=== PATIENT | male | born 1940 | race Caucasian/White ===

== ENCOUNTER → 2017-01-21 | Outpatient (CLI) | payer MEDICARE ==
--- NOTE | 2017-01-24 10:43 | RSPPFT ---
DATE OF PROCEDURE: 01/21/17 COMMENTS: VOLUMES DYNAMIC: FVC and FEV1 moderately reduced. STATIC: FRC mildly increased; RV moderately increased; TLC normal. FLOWS: FEV1% moderately reduced; FEF 25-75 severely reduced. DIFFUSION: Low normal. FLOW VOLUME LOOP: Pattern of variable intrathoracic airways obstruction. IMPRESSION: Moderate obstructive ventilatory defect with no significant reduction in diffusion. There is mild to moderate hyperinflation with increased airways resistance. There is improvement post-bronchodilator.
== END ==
LOC: HRSP 09:35
PROVIDERS: ATTEND Internal Medicine
DX: J47.9 Bronchiectasis, uncomplicated (principal); R06.02 Shortness of breath
CPT/HCPCS: 94060; 94726; 94729

== ENCOUNTER 2017-05-19 15:27 | Inpatient (IN) | payer MEDICARE ==
[~2017-05-19] VITALS: Ht 180.3 cm; Wt 70.3 kg
[2017-05-19] VITALS (7 sets, daily range): BP systolic 147–164; BP diastolic 77–88; PULSE 100–122; RESP 18–35; TEMP 97.6–98.1; O2SAT 86–98
[2017-05-19] MEDS ORDERED: IOHEXOL 350 MG/ML 10 ML VIAL (for RAD DIAG) IVCONTRAST ONE (15:28)
[2017-05-19] MEDS ORDERED: CIPR-9 PO (15:47)
[2017-05-19] MEDS ORDERED: ALBU1.25 NEB (15:47)
[2017-05-19] MEDS ORDERED: IPRA0.02 NEB (15:47)
[2017-05-19] MEDS ORDERED: SODIUM CHLORID 0.9% 500 ML INJ 500 ML IV ONE (16:00)
[2017-05-19] MEDS ORDERED: SODIUM CHLORIDE 0.9% FLUSH 10 ML FLUSH IVF PRN (16:00)
--- NOTE | 2017-05-19 16:15 | PD ---
HPI Chief Complaint: Respiratory Distress Time Seen by Provider: 15:39 Travel History International Travel<30 days: No Contact w/Intl Traveler<30days: No Traveled to known affect area: No History of Present Illness HPI Patient is 76-year-old male with history of bronchiectasis, presents to emergency room for evaluation of shortness of breath. Patient reports that he has been feeling short of breath for the past few months. Reports that he has been seeing Dr. Lloyd Hinds in the office and reports that he has had a workup including a CT study of his chest which showed infection. Patient reports that he has been on multiple antibiotics and is currently taking ciprofloxacin. Patient reports that he's had a productive cough with thick white sputum for the past few months. Patient was seen in the office by Dr. hinds today, was sent to the ER as he has progressing shortness of breath. Patient reports dyspnea on exertion as well as at rest. Denies history of hypertension, hyperlipidemia, he is a non smoker. Reports that Dr. Hinds requested a cardiac/ pulmonary workup for patient as ALEXANDER has been ongoing and progressing over the past few months. PFSH Past Medical History COPD: Yes Diminished Hearing: Yes ([place]) Medical other: Yes (SITUS INVERSUS) Respiratory: Yes (copd) Tetanus Vaccination: > 5 Years Influenza Vaccination: No Past Surgical History Tonsillectomy: Yes Other Surgery: Yes (NASAL POLYPS) Social History Alcohol Use: No Tobacco Use: No Substance Use: No Allergies-Medications (Allergen,Severity, Reaction): Coded Allergies: cephalexin (Verified Allergy, Severe, Nausea/Vomiting, 05/19/17) Reported Meds & Prescriptions Reported Meds & Active Scripts Active Reported Albuterol Neb (Albuterol Sulfate) 1.25 Mg/3 Ml Neb 1.25 Mg NEB Q4HR NEB PRN Ipratropium Neb (Ipratropium [place]) 0.5 Mg/2.5 Ml Amp 0.5 Mg NEB Q12HR NEB Cipro (Ciprofloxacin HCl) 500 Mg Tab 500 Mg PO BID Review of Systems General / Constitutional: No: Fever Eyes: No: Visual changes HENT: No: Headaches Cardiovascular: Positive: Tachycardia, No: Chest Pain or Discomfort Respiratory: Positive: Cough, Shortness of Breath Gastrointestinal: No: Abdominal Pain Genitourinary: No: Dysuria Musculoskeletal: No: Pain Skin: No Rash Neurologic: No: Weakness Psychiatric: No: Depression Endocrine: No: Polydipsia Hematologic/Lymphatic: No: Easy Bruising Physical Exam Narrative GENERAL:mild distress SKIN: Focused skin assessment warm/dry. HEAD: Atraumatic. Normocephalic. EYES: Pupils equal and round. No scleral icterus. No injection or drainage. ENT: No nasal bleeding or discharge. Mucous membranes pink and moist. NECK: Trachea midline. No JVD. CARDIOVASCULAR: Tachycardic, irregular irregular. No murmur appreciated. RESPIRATORY: No accessory muscle use. Clear to auscultation. Breath sounds equal bilaterally. GASTROINTESTINAL: Abdomen soft, non-tender, nondistended. Hepatic and splenic margins not palpable. MUSCULOSKELETAL: No obvious deformities. No clubbing. No cyanosis. No edema. NEUROLOGICAL: Awake and alert. No obvious cranial nerve deficits. Motor grossly within normal limits. Normal speech. PSYCHIATRIC: Appropriate mood and affect; insight and judgment normal. Data Data Last Documented VS Vital Signs Date Time Temp Pulse Resp B/P (MAP) Pulse Ox O2 Delivery O2 Flow Rate FiO2 05/19/17 18:12 100 20 152/77 (102) 92 Room Air 05/19/17 15:31 97.9 Orders Orders Electrocardiogram (05/19/17 15:55) B-Type Natriuretic Peptide (05/19/17 15:55) Ckmb (Isoenzyme) Profile (05/19/17 15:55) Complete Blood Count With Diff (05/19/17 15:55) Comprehensive Metabolic Panel (05/19/17 15:55) Prothrombin Time / Inr (Pt) (05/19/17 15:55) Act Partial Throm Time (Ptt) (05/19/17 15:55) Troponin I (05/19/17 15:55) Chest, Single Ap (05/19/17 15:55) Ecg Monitoring (05/19/17 15:55) Iv Access Insert/Monitor (05/19/17 15:55) Oximetry (05/19/17 15:55) Sodium Chloride 0.9% Flush (Ns Flush) (05/19/17 16:00) Sodium Chlorid 0.9% 500 Ml Inj (Ns 500 M (05/19/17 16:00) Ct Pulmonary Angiogram (05/19/17 16:30) Iohexol 350 Inj (Omnipaque 350 Inj) (05/19/17 15:28) Aztreonam Inj (Azactam Inj) (05/19/17 18:30) Levofloxacin 750 Mg Premix Inj (Levaquin (05/19/17 18:30) Aspirin Chew (Aspirin Chew) (05/19/17 18:30) Admit Order (Ed Use Only) (05/19/17 18:32) Labs Laboratory Tests Test 05/19/17 16:00 White Blood Count 15.8 TH/MM3 Red Blood Count 5.35 MIL/MM3 Hemoglobin 14.7 GM/DL Hematocrit 45.9 % Mean Corpuscular Volume 85.8 FL Mean Corpuscular Hemoglobin 27.5 PG Mean Corpuscular Hemoglobin Concent 32.1 % Red Cell Distribution Width 15.6 % Platelet Count 234 TH/MM3 Mean Platelet Volume 7.5 FL Neutrophils (%) (Auto) 83.8 % Lymphocytes (%) (Auto) 4.5 % Monocytes (%) (Auto) 9.4 % Eosinophils (%) (Auto) 1.9 % Basophils (%) (Auto) 0.4 % Neutrophils # (Auto) 13.2 TH/MM3 Lymphocytes # (Auto) 0.7 TH/MM3 Monocytes # (Auto) 1.5 TH/MM3 Eosinophils # (Auto) 0.3 TH/MM3 Basophils # (Auto) 0.1 TH/MM3 CBC Comment DIFF FINAL Differential Comment Prothrombin Time 11.3 SEC Prothromb Time International Ratio 1.0 RATIO Activated Partial Thromboplast Time 29.3 SEC Blood Urea Nitrogen 16 MG/DL Creatinine 0.97 MG/DL Random Glucose 87 MG/DL Total Protein 7.4 GM/DL Albumin 3.4 GM/DL Calcium Level 8.8 MG/DL Alkaline Phosphatase 84 U/L Aspartate Amino Transf (AST/SGOT) 18 U/L Alanine Aminotransferase (ALT/SGPT) 18 U/L Total Bilirubin 0.4 MG/DL Sodium Level 138 MEQ/L Potassium Level 4.0 MEQ/L Chloride Level 102 MEQ/L Carbon Dioxide Level 26.6 MEQ/L Anion Gap 9 MEQ/L Estimat Glomerular Filtration Rate 75 ML/MIN Total Creatine Kinase 66 U/L Troponin I LESS THAN 0.02 NG/ML B-Type Natriuretic Peptide 27 PG/ML MDM Medical Decision Making Medical Screen Exam Complete: Yes Emergency Medical Condition: Yes Interpretation(s) EKG at 1555: A fib at 110, qt/qtc: 327/392 Differential Diagnosis Differential includes PE, A. fib with RVR, CHF exacerbation, PE, pneumonia, electrolyte abnormality Narrative Course Patient is a 76-year-old male sent into the hospital by Dr. Hinds for evaluation of sob. Patient has been having shortness of breath for the past few months, reports that dyspnea on exertion has progressively gotten worse. He currently is on a course of antibiotics as he had a CT study of his chest a few months ago which showed infection Vital Signs Date Time Temp Pulse Resp B/P (MAP) Pulse Ox O2 Delivery O2 Flow Rate FiO2 05/19/17 18:12 100 20 152/77 (102) 92 Room Air 05/19/17 16:01 32 93 Room Air 05/19/17 15:31 97.9 122 20 164/84 (110) 91 Room Air Laboratory Tests Test 05/19/17 16:00 White Blood Count 15.8 TH/MM3 (4.0-11.0) Red Blood Count 5.35 MIL/MM3 (4.50-5.90) Hemoglobin 14.7 GM/DL (13.0-17.0) Hematocrit 45.9 % (39.0-51.0) Mean Corpuscular Volume 85.8 FL (80.0-100.0) Mean Corpuscular Hemoglobin 27.5 PG (27.0-34.0) Mean Corpuscular Hemoglobin Concent 32.1 % (32.0-36.0) Red Cell Distribution Width 15.6 % (11.6-17.2) Platelet Count 234 TH/MM3 (150-450) Mean Platelet Volume 7.5 FL (7.0-11.0) Neutrophils (%) (Auto) 83.8 % (16.0-70.0) Lymphocytes (%) (Auto) 4.5 % (9.0-44.0) Monocytes (%) (Auto) 9.4 % (0.0-8.0) Eosinophils (%) (Auto) 1.9 % (0.0-4.0) Basophils (%) (Auto) 0.4 % (0.0-2.0) Neutrophils # (Auto) 13.2 TH/MM3 (1.8-7.7) Lymphocytes # (Auto) 0.7 TH/MM3 (1.0-4.8) Monocytes # (Auto) 1.5 TH/MM3 (0-0.9) Eosinophils # (Auto) 0.3 TH/MM3 (0-0.4) Basophils # (Auto) 0.1 TH/MM3 (0-0.2) CBC Comment DIFF FINAL Differential Comment Prothrombin Time 11.3 SEC (9.8-11.6) Prothromb Time International Ratio 1.0 RATIO Activated Partial Thromboplast Time 29.3 SEC (24.3-30.1) Blood Urea Nitrogen 16 MG/DL (7-18) Creatinine 0.97 MG/DL (0.60-1.30) Random Glucose 87 MG/DL (74-106) Total Protein 7.4 GM/DL (6.4-8.2) Albumin 3.4 GM/DL (3.4-5.0) Calcium Level 8.8 MG/DL (8.5-10.1) Alkaline Phosphatase 84 U/L (45-117) Aspartate Amino Transf (AST/SGOT) 18 U/L (15-37) Alanine Aminotransferase (ALT/SGPT) 18 U/L (12-78) Total Bilirubin 0.4 MG/DL (0.2-1.0) Sodium Level 138 MEQ/L (136-145) Potassium Level 4.0 MEQ/L (3.5-5.1) Chloride Level 102 MEQ/L (98-107) Carbon Dioxide Level 26.6 MEQ/L (21.0-32.0) Anion Gap 9 MEQ/L (5-15) Estimat Glomerular Filtration Rate 75 ML/MIN (>89) Total Creatine Kinase 66 U/L (39-308) Troponin I LESS THAN 0.02 NG/ML B-Type Natriuretic Peptide 27 PG/ML (0-100) Last Impressions CT Angiography 05/19/17 1630 Signed Impressions: Service Date/Time: April 17:28 - CONCLUSION: 1. No evidence of pulmonary embolism. 2. Situs inversus totalis. 3. Bronchiectasis greatest in the lung bases with chronic scarring and reticulonodular opacities. 4. Bilateral calcified pleural plaques. 5. Mediastinal and hilar adenopathy. This may be reactive. Nino Hurt MD patient with reticulonodular opacities with wbc of 15.8, patient with allergy to keflex, will treat with levaquin and azactam. Patient has been pancultured - will require admission. patient also with new onset afib case reviewed with dr. greene who accepts pt to service under dr martin Diagnosis Primary Impression: Pneumonia Qualified Codes: J18.9 - Pneumonia, unspecified organism Additional Impressions: SOB (shortness of breath) Afib Qualified Codes: I48.91 - Unspecified atrial fibrillation Admitting Information Admitting Physician Requests: Observation Belkis Desir DO May 19, 2017 16:15
[2017-05-19 16:20] LABS: AUTOMATED NEUTROPHIL # 13.2 TH/MM3 (1.8-7.7); BASOPHIL # 0.1 TH/MM3 (0-0.2); BASOPHIL % 0.4 % (0.0-2.0); EOSINOPHIL # 0.3 TH/MM3 (0-0.4); EOSINOPHIL % 1.9 % (0.0-4.0); HEMATOCRIT 45.9 % (39.0-51.0); HEMO FLAGS DIFF FINAL; LYMPH % 4.5 % (9.0-44.0); LYMPHOCYTE # 0.7 TH/MM3 (1.0-4.8); MEAN CELL VOLUME 85.8 FL (80.0-100.0); MEAN CORPUSCULAR HEMOGLOBIN 27.5 PG (27.0-34.0); MEAN CORPUSCULAR HGB CONC 32.1 % (32.0-36.0); MONO % 9.4 % (0.0-8.0); NEUT % 83.8 % (16.0-70.0); PLATELET COUNT 234 TH/MM3 (150-450); RED BLOOD COUNT 5.35 MIL/MM3 (4.50-5.90); RED CELL DISTRIBUTION WIDTH 15.6 % (11.6-17.2); WHITE BLOOD COUNT 15.8 TH/MM3 (4.0-11.0)
[2017-05-19 16:33] LABS: APTT (PATIENT) 29.3 SEC (24.3-30.1); PROTHROMBIN TIME - PATIENT 11.3 SEC (9.8-11.6)
[2017-05-19 16:43] LABS: ALT (GPT) 18 U/L (12-78); ANION GAP 9 MEQ/L (5-15); AST (GOT) 18 U/L (15-37); BICARBONATE 26.6 MEQ/L (21.0-32.0); BLOOD UREA NITROGEN 16 MG/DL (7-18); CHLORIDE 102 MEQ/L (98-107); GLOMERULAR FILTRATION RATE 75 ML/MIN (>89); SODIUM (NA) 138 MEQ/L (136-145)
[2017-05-19 16:47] LABS: ALKALINE PHOSPHATASE 84 U/L (45-117); TOTAL BILIRUBIN ADULT 0.4 MG/DL (0.2-1.0)
[2017-05-19 16:51] LABS: CREATINE KINASE 66 U/L (39-308)
--- NOTE | 2017-05-19 18:00 | RADRPT ---
EXAM DATE/TIME: 05/19/2017 17:28 [facility] COMPARISON: No previous studies available for comparison. INDICATIONS : Short of breath for three months. IV CONTRAST: 60 cc Omnipaque 350 (iohexol) IV RADIATION DOSE: 41 CTDIvol (mGy) MEDICAL HISTORY : Chronic obstructive pulmonary disease. Sinus inversa SURGICAL HISTORY : None. ENCOUNTER: Initial ACUITY: 3 months PAIN SCALE: 2/10 LOCATION: Bilateral chest TECHNIQUE: Volumetric scanning of the chest was performed using a pulmonary embolism protocol MIP images were re constructed. Using automated exposure control and adjustment of the mA and/or kV according to patien t size, radiation dose was kept as low as reasonably achievable to obtain optimal diagnostic quality images. DICOM format image data is available electronically for review and comparison. Follow-up recommendations for detected pulmonary nodules are based at a minimum on nodule size and pa tient risk factors according to Fleischner Society Guidelines. 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 PULMONARY ARTERIES: No filling defects are seen in the pulmonary arteries through the segmental level. LUNGS: There is no consolidation or pneumothorax . No concerning pulmonary nodule is visualized. Bronchiect asis is noted greatest in the lower lobes. Reticular nodular opacities are present in both lower lobe s as well right greater than left. There is chronic scarring in the posterior lung bases. The lungs a re hyperinflated. PLEURAE: There bilateral calcified pleural plaques. There is no distinct effusion. MEDIASTINUM: There is good visualization of the great vessels of the middle mediastinum. The there is borderline a denopathy in pretracheal region. There are prominent lymph nodes in both hilar regions and the subcar inal region.. Coronary artery calcifications are present. MUSCULOSKELETAL: Within normal limits for patient age. MISCELLANEOUS: The visualized upper abdominal organs demonstrate no acute abnormality. Cystic structures are noted i n both kidneys. CONCLUSION: 1. No evidence of pulmonary embolism. 2. Situs inversus totalis. 3. Bronchiectasis greatest in the lung bases with chronic scarring and reticulonodular opacities. 4. Bilateral calcified pleural plaques. 5. Mediastinal and hilar adenopathy. This may be reactive. Nino Hurt MD on May 19, 2017 at 17:53 Board Certified Radiologist. This report was verified electronically.
--- NOTE | 2017-05-19 18:25 | RADRPT ---
EXAM DATE/TIME: 05/19/2017 16:41 [facility] COMPARISON: No previous studies available for comparison. INDICATIONS : Shortness of breath. Situs inversus. MEDICAL HISTORY : Chronic obstructive pulmonary disease. SURGICAL HISTORY : None. ENCOUNTER: Initial ACUITY: 3 months PAIN SCORE: 0/10 LOCATION: Bilateral chest FINDINGS: 2 AP portable erect views of the chest were obtained and demonstrate situs inversus. There is hyperin flation of both lungs with coarse opacity in both lower lobes and bronchiectasis. The heart size is a t the upper limits of normal. There is no perihilar edema. Overlying retrocardiac leads are present. The bony thorax is intact. CONCLUSION: 1. Hyperinflation underlying emphysema. 2. Coarse infiltrate in both lung bases with bronchiectasis. Nino Hurt MD on May 19, 2017 at 18:22 Board Certified Radiologist. This report was verified electronically.
[2017-05-19] MEDS ORDERED: LEVOFLOXACIN 750 MG PREMIX INJ 150 ML IV ONE (18:30)
[2017-05-19] MEDS ORDERED: ASPIRIN 81 MG CHEW TAB CHEW ONE (18:30)
[2017-05-19] MEDS ORDERED: AZTREONAM INJ 2,000 MG in SODIUM CHLORIDE 0.9% INJ 100 ML IV ONE (18:30)
[2017-05-19] MEDS ORDERED: SODIUM CHLORIDE 0.9% FLUSH 10 ML FLUSH IV FLUSH PRN (20:45)
[2017-05-19] MEDS ORDERED: SODIUM CHLOR 0.9% 1000 ML INJ 1,000 ML IV SCH (20:45)
--- NOTE | 2017-05-19 20:45 | HHI.HP ---
HPI Service [facility] Hospitalists Primary Care Physician Valdo Tejada MD Admission Diagnosis Pneumonia, bronchietasis, new onset afib Chief Complaint: sob, heart racing Travel History International Travel<30 Days: No Contact w/Intl Traveler <30 Da: No Traveled to Known Affected Are: No Sepsis Criteria SIRS Criteria (2 or more): RR > 20 or PaCO2 < 32, WBC > 67360, < 4000 or > 10 % bands Sepsis Criteria (SIRS+source): Infect source susp/known History of Present Illness Patient is 76-year-old male with long history of bronchiectasis, presents to emergency room for evaluation of shortness of breath. Patient reports that he has been feeling short of breath for several years but worse the past few months. He does not require supplemental oxygen as an outpatient. Reports that he has been seeing Dr. Lloyd Hinds for years for his bronchiectasis in the office and reports that he has had a workup including a CT study of his chest which showed "infection". Patient reports that he has been on multiple antibiotics and is currently taking ciprofloxacin. He takes doxycycline daily for rosacea and reportedly was on tobramycin recently. Patient reports that he' s had a productive cough with thick white sputum for the past few months. Previously the phlegm was a dark yellow color. He denies hemoptysis or foreign travel. He is originally from [place]. Has not been in the [facility] or [facility] recently. Denies fevers. Patient was seen in the office by Dr. Hinds today, was sent to the ER as he has progressing shortness of breath. Patient reports dyspnea on exertion as well as at rest. Denies history of hypertension, hyperlipidemia, he is a non smoker. Reports that Dr. Hinds requested a cardiac/pulmonary workup for patient as ALEXANDER has been ongoing and progressing over the past few months. Denies chest pain. Typically is quite active but has been limited by shortness of breath of late. He has noted that her heart seems to race at times especially when he is anxious. Reports that he has never had a bronchoscopy. Review of Systems Constitutional: COMPLAINS OF: Fatigue, DENIES: Diaphoretic episodes, Fever, Weight gain, Weight loss, Chills, Dizziness, Change in appetite, Night Sweats Endocrine: DENIES: Heat/cold intolerance, Polydipsia, Polyuria, Polyphagia Eyes: DENIES: Blurred vision, Diplopia, Eye inflammation, Eye pain, Vision loss , Photosensitivity, Double Vision Ears, nose, mouth, throat: COMPLAINS OF: Hoarseness, DENIES: Tinnitus, Hearing loss, Vertigo, Nasal discharge, Oral lesions, Throat pain, Ear Pain, Running Nose, Epistaxis, Sinus Pain, Toothache, Odynophagia Respiratory: COMPLAINS OF: Cough, Wheezing, Sputum production, Shortness of breath, DENIES: Apneas, Snoring, Hemoptysis Cardiovascular: COMPLAINS OF: Palpitations, Dyspnea on Exertion, DENIES: Chest pain, Syncope, PND, Lower Extremity Edema, Orthopnea, Claudication Gastrointestinal: DENIES: Abdominal pain, Black stools, Bloody stools, BRB per rectum, Constipation, Diarrhea, GERD, Nausea, Reflux, Vomiting, Difficulty Swallowing, Anorexia, See HPI Musculoskeletal: DENIES: Joint pain, Muscle aches, Stiffness, Joint Swelling, Back pain, Neck pain Integumentary: DENIES: Abnormal pigmentation, Nail changes, Pruritus, Rash Hematologic/lymphatic: DENIES: Bruising, Lymphadenopathy Immunologic/allergic: DENIES: Eczema, Urticaria Neurologic: DENIES: Abnormal gait, Headache, Localized weakness, Paresthesias, Seizures, Speech Problems, Tremor, Poor Balance Psychiatric: COMPLAINS OF: Anxiety Past Family Social History Past Medical History Bronchiectasis History of multiple pneumonias Rosacea History of prostate cancer History of bladder cancer Past Surgical History Nasal polypectomy Balloon septoplasty Radiation therapy for prostate cancer Local chemotherapy and resection for bladder cancer Reported Medications Albuterol Neb (Albuterol Sulfate) 1.25 Mg/3 Ml Neb 1.25 Mg NEB Q4HR NEB PRN Ipratropium Neb (Ipratropium [place]) 0.5 Mg/2.5 Ml Amp 0.5 Mg NEB Q12HR NEB Cipro (Ciprofloxacin HCl) 500 Mg Tab 500 Mg PO BID Allergies: Coded Allergies: cephalexin (Verified Allergy, Severe, Nausea/Vomiting, 05/19/17) Family History Mother at age 75 from cervical cancer Father at age 84 of "broken heart" No significant lung ailments Social History No tobacco in 35 years and at that time he only smoked a pipe on rare occasion Rare alcohol use Denies illicit drug use Lives with his of 49 years 3 adult children, not living in the immediate area 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 Physical Exam Vital Signs Vital Signs Date Time Temp Pulse Resp B/P (MAP) Pulse Ox O2 Delivery O2 Flow Rate FiO2 05/19/17 20:04 101 18 147/88 (107) 95 Nasal Cannula 2.00 05/19/17 18:12 100 32 152/77 (102) 95 Nasal Cannula 2.00 05/19/17 18:10 35 86 Room Air 05/19/17 16:01 32 93 Room Air 05/19/17 15:31 97.9 122 20 164/84 (110) 91 Room Air Physical Exam GENERAL: This is a well-nourished, well-developed patient, in no apparent distress. Alert and oriented. Pleasant. Cooperative with exam. SKIN: No rashes, ecchymoses or lesions. Cool and dry. HEAD: Atraumatic. Normocephalic. No temporal or scalp tenderness. EYES: Pupils equal round and reactive. Extraocular motions intact. No scleral icterus. No injection or drainage. ENT: Nose without bleeding, purulent drainage or septal hematoma. Airway patent. NECK: Trachea midline. No JVD or lymphadenopathy. Supple, nontender, no meningeal signs. CARDIOVASCULAR: Irregularly irregular rate and rhythm without murmurs, gallops, or rubs. Rate in the low 100s on my exam RESPIRATORY: Coarse breath sounds throughout lung birch.. Breath sounds equal bilaterally. Occasional expiratory wheeze with no fine crackles. Fair air movement. GASTROINTESTINAL: Abdomen soft, non-tender, nondistended. No hepato-splenomegaly , or palpable masses. No guarding. MUSCULOSKELETAL: Extremities without clubbing, cyanosis, or edema. No joint tenderness, effusion, or edema noted. No calf tenderness. NEUROLOGICAL: Awake and alert. Cranial nerves II through XII intact. Motor and sensory grossly within normal limits. Five out of 5 muscle strength in all muscle groups. Normal speech. Laboratory Laboratory Tests Test 05/19/17 16:00 White Blood Count 15.8 Red Blood Count 5.35 Hemoglobin 14.7 Hematocrit 45.9 Mean Corpuscular Volume 85.8 Mean Corpuscular Hemoglobin 27.5 Mean Corpuscular Hemoglobin Concent 32.1 Red Cell Distribution Width 15.6 Platelet Count 234 Mean Platelet Volume 7.5 Neutrophils (%) (Auto) 83.8 Lymphocytes (%) (Auto) 4.5 Monocytes (%) (Auto) 9.4 Eosinophils (%) (Auto) 1.9 Basophils (%) (Auto) 0.4 Neutrophils # (Auto) 13.2 Lymphocytes # (Auto) 0.7 Monocytes # (Auto) 1.5 Eosinophils # (Auto) 0.3 Basophils # (Auto) 0.1 CBC Comment DIFF FINAL Differential Comment Prothrombin Time 11.3 Prothromb Time International Ratio 1.0 Activated Partial Thromboplast Time 29.3 Blood Urea Nitrogen 16 Creatinine 0.97 Random Glucose 87 Total Protein 7.4 Albumin 3.4 Calcium Level 8.8 Alkaline Phosphatase 84 Aspartate Amino Transf (AST/SGOT) 18 Alanine Aminotransferase (ALT/SGPT) 18 Total Bilirubin 0.4 Sodium Level 138 Potassium Level 4.0 Chloride Level 102 Carbon Dioxide Level 26.6 Anion Gap 9 Estimat Glomerular Filtration Rate 75 Total Creatine Kinase 66 Troponin I LESS THAN 0.02 B-Type Natriuretic Peptide 27 Result Diagram: 05/19/17 1600 05/19/17 1600 Imaging Last [address] Angiography 05/19/17 1630 Signed Impressions: Service Date/Time: April 17:28 - CONCLUSION: 1. No evidence of pulmonary embolism. 2. Situs inversus totalis. 3. Bronchiectasis greatest in the lung bases with chronic scarring and reticulonodular opacities. 4. Bilateral calcified pleural plaques. 5. Mediastinal and hilar adenopathy. This may be reactive. Nino Hurt MD Chest X-Ray 05/19/17 1558 Signed Impressions: Service Date/Time: April 16:41 - CONCLUSION: 1. Hyperinflation underlying emphysema. 2. Coarse infiltrate in both lung bases with bronchiectasis. Nino Hurt MD Septic Shock Reassessment Heart: Irregular Lungs: Course Skin: Warm Peripheral Pulses: Bounding Right Popliteal Bounding Left Popliteal Bounding Right Dorsalis Pedis Bounding Left Dorsalis Pedis Capillary Refill: Brisk Caprini VTE Risk Assessment Caprini VTE Risk Assessment: Mod/High Risk (score >= 2) Caprini Risk Assessment Model Point Value = 1 Point Value = 2 Point Value = 3 Point Value = 5 Age 41-60 Minor surgery BMI > 25 kg/m2 Swollen legs Varicose veins or History of unexplained or recurrent spontaneous Oral contraceptives or hormone replacement Sepsis (< 1 month) Serious lung disease, including pneumonia (< 1 month) Abnormal pulmonary function Acute myocardial infarction Congestive heart failure (< 1 month) History of inflammatory bowel disease Medical patient at bed rest Age 61-74 Arthroscopic surgery Major open surgery (> 45 min) Laparoscopic surgery (> 45 min) Malignancy Confined to bed (> 72 hours) Immobilizing plaster cast Central venous access Age >= 75 History of VTE Family history of VTE Factor V Leiden Prothrombin [id number] Lupus anticoagulant Anticardiolipin antibodies Elevated serum homocysteine Heparin-induced thrombocytopenia Other congenital or acquired thrombophilia Stroke (< 1 month) Elective arthroplasty Hip, pelvis, or leg fracture Acute spinal cord injury (< 1 month) Prophylaxis Regimen Total Risk Factor Score Risk Level Prophylaxis Regimen 0-1 Low Early ambulation 2 Moderate Order ONE of the following: *Sequential Compression Device (SCD) *Heparin 5000 units SQ BID 3-4 Higher Order ONE of the following medications: *Heparin 5000 units SQ TID *Enoxaparin/Lovenox 40 mg SQ daily (WT < 150 kg, CrCl > 30 mL/min) *Enoxaparin/Lovenox 30 mg SQ daily (WT < 150 kg, CrCl > 10-29 mL/min) *Enoxaparin/Lovenox 30 mg SQ BID (WT < 150 kg, CrCl > 30 mL/min) AND/OR *Sequential Compression Device (SCD) 5 or more Highest Order ONE of the following medications: *Heparin 5000 units SQ TID (Preferred with Epidurals) *Enoxaparin/Lovenox 40 mg SQ daily (WT < 150 kg, CrCl > 30 mL/min) *Enoxaparin/Lovenox 30 mg SQ daily (WT < 150 kg, CrCl > 10-29 mL/min) *Enoxaparin/Lovenox 30 mg SQ BID (WT < 150 kg, CrCl > 30 mL/min) AND *Sequential Compression Device (SCD) Assessment and Plan Problem List: (1) Pneumonia ICD Codes: J18.9 - Pneumonia, unspecified organism Status: Acute Plan: Likely source of underlying sepsis. Vital signs relatively stable. It is noted that patient has underlying bronchiectasis with situs inversus and multiple pneumonias. 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 I will add azithromycin for atypical organism coverage. We'll have pulmonary see the patient for possible bronchoscopy given his long history. (2) Bronchiectasis ICD Codes: J47.9 - Bronchiectasis, uncomplicated Plan: As noted above. (3) Afib ICD Codes: I48.91 - Unspecified atrial fibrillation Status: Acute Plan: Appears to be relatively new onset and may be associated with underlying chronic lung condition. We'll check labs, echo and rule out possible coronary etiology. He appears relatively healthy but may benefit from a stress test at some point either during or shortly after this hospital stay. We'll use oral Cardizem for rate control. Code Status Full Discussed Condition With Patient and ER provider. Physician Certification 2 Midnight Certification Type: Admission for Inpatient Services Order for Inpatient Services The services are ordered in accordance with Medicare regulations or non- Medicare payer requirements, as applicable. In the case of services not specified as inpatient-only, they are appropriately provided as inpatient services in accordance with the 2-midnight benchmark. Estimated LOS (days): 3 days is the estimated time the patient will need to remain in the hospital, assuming treatment plan goals are met and no additional complications. Post-Hospital Plan: Home Problem Qualifiers (1) Pneumonia: Qualified Codes: J18.9 - Pneumonia, unspecified organism (2) Afib: Qualified Codes: I48.91 - Unspecified atrial fibrillation Luis Antonio Carmona MD PhD May 19, 2017 20:45
[2017-05-19] MEDS: ENOXAPARIN SODIUM 30 MG/0.3 ML SYRINGE SQ SCH (22:00)
[2017-05-19] MEDS: RESP: ALBUTEROL 2.5 MG/IPRATROPIUM 0.5 MG NEB (SCH) INH (22:00)
[2017-05-19] MEDS: DILTIAZEM HCL 30 MG TAB PO SCH (23:37)
[2017-05-19] MEDS: AZITHROMYCIN INJ 500 MG in SODIUM CHLOR 0.9% 250 ML INJ 250 ML IV SCH (23:37)
[2017-05-19] MEDS: SODIUM CHLORIDE 0.9% FLUSH 10 ML FLUSH IV FLUSH SCH (23:38)
[2017-05-19] MEDS: methylPREDNISolone SOD SUCC 40 MG/1 ML VIAL IV SCH (23:38)
[2017-05-20] VITALS (12 sets, daily range): BP systolic 107–162; BP diastolic 52–88; PULSE 81–104; RESP 20; TEMP 97.2–97.8; O2SAT 91–99
[2017-05-20] MEDS: RESP: ALBUTEROL 2.5 MG/IPRATROPIUM 0.5 MG NEB (SCH) INH ×4 (04:14→21:20)
[2017-05-20] MEDS: DILTIAZEM HCL 30 MG TAB PO SCH (05:01)
[2017-05-20] MEDS: SODIUM CHLORIDE 0.9% FLUSH 10 ML FLUSH IV FLUSH SCH ×2 (08:26→22:11)
[2017-05-20] MEDS: methylPREDNISolone SOD SUCC 40 MG/1 ML VIAL IV SCH ×2 (08:26→22:10)
[2017-05-20 10:31] LABS: AUTOMATED NEUTROPHIL # 12.4 TH/MM3 (1.8-7.7); BASOPHIL % 0.1 % (0.0-2.0); HEMO FLAGS DIFF FINAL; LYMPH % 1.9 % (9.0-44.0); LYMPHOCYTE # 0.2 TH/MM3 (1.0-4.8); MEAN CELL VOLUME 86.3 FL (80.0-100.0); MEAN CORPUSCULAR HEMOGLOBIN 28.1 PG (27.0-34.0); MEAN CORPUSCULAR HGB CONC 32.6 % (32.0-36.0); MONO % 1.1 % (0.0-8.0); NEUT % 96.9 % (16.0-70.0); PLATELET COUNT 198 TH/MM3 (150-450); RED CELL DISTRIBUTION WIDTH 15.4 % (11.6-17.2); WHITE BLOOD COUNT 12.8 TH/MM3 (4.0-11.0)
--- NOTE | 2017-05-20 10:57 | HHI.PR ---
Subjective Remarks Pt overall feels slightly better today He was able to cough up some green sputum this morning Pt still in A.fib RVR on telmetry with HR in the 130-140s Objective Vitals Vital Signs Date Time Temp Pulse Resp B/P (MAP) Pulse Ox O2 Delivery O2 Flow Rate FiO2 05/20/17 09:45 95 Nasal Cannula 2.00 05/20/17 08:15 104 05/20/17 08:00 97.6 90 20 155/84 (107) 94 05/20/17 07:52 Nasal Cannula 2.00 05/20/17 04:55 95 Nasal Cannula 2.00 05/20/17 04:00 97.4 99 20 134/85 (101) 95 05/20/17 00:26 87 05/20/17 00:00 97.4 90 20 138/83 (101) 96 05/19/17 22:15 97.6 115 20 163/83 (109) 94 05/19/17 21:52 05/19/17 21:45 98.1 108 18 147/87 (107) 98 Nasal Cannula 2.00 05/19/17 20:04 101 18 147/88 (107) 95 Nasal Cannula 2.00 05/19/17 18:12 100 32 152/77 (102) 95 Nasal Cannula 2.00 05/19/17 18:10 35 86 Room Air 05/19/17 16:01 32 93 Room Air 05/19/17 15:31 97.9 122 20 164/84 (110) 91 Room Air 05/20/17 05/20/17 05/21/17 14:59 22:59 06:59 Intake Total 600 ml Balance 600 ml IV Total 600 ml Result Diagram: 05/20/17 0644 05/19/17 1600 Other Results Laboratory Tests Test 05/19/17 16:00 05/19/17 23:05 05/20/17 06:44 White Blood Count 15.8 TH/MM3 12.8 TH/MM3 Red Blood Count 5.35 MIL/MM3 5.10 MIL/MM3 Hemoglobin 14.7 GM/DL 14.3 GM/DL Hematocrit 45.9 % 44.0 % Mean Corpuscular Volume 85.8 FL 86.3 FL Mean Corpuscular Hemoglobin 27.5 PG 28.1 PG Mean Corpuscular Hemoglobin Concent 32.1 % 32.6 % Red Cell Distribution Width 15.6 % 15.4 % Platelet Count 234 TH/MM3 198 TH/MM3 Mean Platelet Volume 7.5 FL 8.2 FL Neutrophils (%) (Auto) 83.8 % 96.9 % Lymphocytes (%) (Auto) 4.5 % 1.9 % Monocytes (%) (Auto) 9.4 % 1.1 % Eosinophils (%) (Auto) 1.9 % 0.0 % Basophils (%) (Auto) 0.4 % 0.1 % Neutrophils # (Auto) 13.2 TH/MM3 12.4 TH/MM3 Lymphocytes # (Auto) 0.7 TH/MM3 0.2 TH/MM3 Monocytes # (Auto) 1.5 TH/MM3 0.1 TH/MM3 Eosinophils # (Auto) 0.3 TH/MM3 0.0 TH/MM3 Basophils # (Auto) 0.1 TH/MM3 0.0 TH/MM3 CBC Comment DIFF FINAL DIFF FINAL Differential Comment Prothrombin Time 11.3 SEC Prothromb Time International Ratio 1.0 RATIO Activated Partial Thromboplast Time 29.3 SEC Blood Urea Nitrogen 16 MG/DL 16 MG/DL Creatinine 0.97 MG/DL 0.82 MG/DL Random Glucose 87 MG/DL 130 MG/DL Total Protein 7.4 GM/DL Albumin 3.4 GM/DL Calcium Level 8.8 MG/DL 8.4 MG/DL Alkaline Phosphatase 84 U/L Aspartate Amino Transf (AST/SGOT) 18 U/L Alanine Aminotransferase (ALT/SGPT) 18 U/L Total Bilirubin 0.4 MG/DL Sodium Level 138 MEQ/L 138 MEQ/L Potassium Level 4.0 MEQ/L 4.0 MEQ/L Chloride Level 102 MEQ/L 102 MEQ/L Carbon Dioxide Level 26.6 MEQ/L 25.8 MEQ/L Anion Gap 9 MEQ/L 10 MEQ/L Estimat Glomerular Filtration Rate 75 ML/MIN 91 ML/MIN Total Creatine Kinase 66 U/L Troponin I LESS THAN 0.02 NG/ML LESS THAN 0.02 NG/ML B-Type Natriuretic Peptide 27 PG/ML Thyroid Stimulating Hormone 3rd Gen 2.630 uIU/ML Imaging Last [address] Angiography 05/19/17 1630 Signed Impressions: Service Date/Time: April 17:28 - CONCLUSION: 1. No evidence of pulmonary embolism. 2. Situs inversus totalis. 3. Bronchiectasis greatest in the lung bases with chronic scarring and reticulonodular opacities. 4. Bilateral calcified pleural plaques. 5. Mediastinal and hilar adenopathy. This may be reactive. Nino Hurt MD Chest X-Ray 05/19/17 1555 Signed Impressions: Service Date/Time: , May 19, 2017 16:41 - CONCLUSION: 1. Hyperinflation underlying emphysema. 2. Coarse infiltrate in both lung bases with bronchiectasis. Nino Hurt MD Objective Remarks General: NAD, AAOx3 Chest: Diffuse crackles throughout Cardiac: Tachy, irregular Abd: +BS, soft ND/NT Ext: No edema A/P Problem List: (1) Pneumonia ICD Codes: J18.9 - Pneumonia, unspecified organism Status: Acute Plan: - Pt is a 76 y/o male with long history of bronchiectasis and follows with Dr. Lloyd Hinds, who presented to the ED for evaluation of shortness of breath. - Patient reports that he has been feeling short of breath for several years but worse the past few months. He does NOT typically require supplemental oxygen as an outpatient. - Pt reportedly had an outpt CT study of his chest which showed "infection". Patient had reportedly been on multiple antibiotics and was on ciprofloxacin prior to admission. - Pts WBC count at admission was 15.8 - CTA (05/19/17) --> No evidence of pulmonary embolism. Situs inversus totalis. Bronchiectasis greatest in the lung bases with chronic scarring and reticulonodular opacities. Bilateral calcified pleural plaques. Mediastinal and hilar adenopathy which may be reactive. - Pt was given Levaquin and Aztreonam in the ED - He was continued on Levaquin and Azithromycin IV following admission. - Cont. Duoneb treatments - Pt was started on Solu-Medrol 40mg Q12H - Sputum culture - Blood cultures are pending - It is noted that patient has underlying bronchiectasis with situs inversus and multiple pneumonias. 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 - Pulmonary medicine is consulted for possible bronchoscopy given his long history. - Supportive care - DVT prophylaxis with SCDs (2) Bronchiectasis ICD Codes: J47.9 - Bronchiectasis, uncomplicated Plan: - As noted above. (3) Afib ICD Codes: I48.91 - Unspecified atrial fibrillation Status: Acute Plan: - Pt does not have previous hx of A. fib. - Pt HR was in the 120's at admission. - This appears to be relatively new onset and may be associated with underlying chronic lung condition. - 2D echo pending. - 2 out of 3 CE are negative, third is pending for this morning. - Cardizem 30mg Q8H was started at admission but HR is still elevated this morning into the 130-140's - We will start Cardizem 60mg Q6H and will recheck HR in about an hour and if still not controlled may need to start a Cardizem gtt Assessment and Plan Patient examined. Assessment and plan formulated with Belkis Hernandez PA-C. I agree with the above. Pt's PO cardizem increased to 60mg q6h with good response. will convert to long acting cardizem in the AM 05/21/17 Problem Qualifiers (1) Pneumonia: Qualified Codes: J18.9 - Pneumonia, unspecified organism (2) Afib: Qualified Codes: I48.91 - Unspecified atrial fibrillation Belkis Hernandez May 20, 2017 10:57 Daniel Mcnair DO May 21, 2017 00:12
[2017-05-20 10:58] LABS: ANION GAP 10 MEQ/L (5-15); BICARBONATE 25.8 MEQ/L (21.0-32.0); BLOOD UREA NITROGEN 16 MG/DL (7-18); CHLORIDE 102 MEQ/L (98-107); GLOMERULAR FILTRATION RATE 91 ML/MIN (>89); SODIUM (NA) 138 MEQ/L (136-145)
[2017-05-20 11:09] LABS: CREATINE KINASE 63 U/L (39-308)
[2017-05-20] MEDS: DILTIAZEM HCL 60 MG TAB PO SCH ×3 (13:32→23:52)
--- NOTE | 2017-05-20 21:00 | MB ---
cc: Rianna GUAMAN DATE OF CONSULTATION 05/20/17 HISTORY OF PRESENT ILLNESS Mr. 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 He had been remarkably stable until several months ago when he began to develop increasing dyspnea, cough and congestion. We repeated pulmonary functions which were down at about 10-15% and a CT scan which was actually unchanged. However, he chronically grows Pseudomonas. At that point, we began to address the bronchiectasis because he had no other obvious issues causing dyspnea. He was begun on bronchodilators, oral prednisone, antibiotics for Pseudomonas which he grows chronically, inhaled adan and had had some courses of prednisone. He seemed to get some response, but he never really recovered completely. I saw him back in the office yesterday and he was clearly more dyspneic. At that point, his heart rate was quite rapid and I walked him in the office and it jumped from about 110-130 and became irregular. He was referred to the emergency room. In the emergency room yesterday, an EKG was done which did in fact reveal atrial fibrillation. This was new onset. He had seen Dr. Donato in the past, but he had never had atrial fibrillation documented to my knowledge. A CTA was done which revealed chronic bronchiectasis, but no pulmonary embolism. I saw him in his room today. He is feeling a little better. I spoke to Dr. Mcnair who has started him on oral Cardizem. Heart rate is improved but not yet under control. He will consult cardiology if problems persist. White count was also elevated at 15,000 so he was placed on antibiotics since he does have underlying chronic lung infection. Blood cultures were negative. Electrolytes were normal and BNP was low at 27. PHYSICAL EXAMINATION GENERAL: He is awake, alert, comfortable. VITAL SIGNS: Afebrile, blood pressure 160/80, pulse is 100 irregular, O2 sat is 95% on 2 liters. NECK: Neck veins are flat. CHEST: Diffuse congestion and rales which are chronic. No wheezing. CARDIAC: Irregular heart rhythm. No harsh murmur. EXTREMITIES: No peripheral edema. ASSESSMENT AND PLAN Mr. Solis has had new onset of dyspnea obviously complicated by his underlying pulmonary disease, but now atrial fib with RVR seems to be the real initiating factor here. I spoke with Dr. Mcnair today. He is managing that aspect of his care. We reviewed his pulmonary therapy at the present time including aerosolized bronchodilators, Zithromax and Azactam along with Levaquin which should be adequate for his Pseudomonas and some IV corticosteroids. I will be away for the next week. My covering colleagues will see him as needed. Dr. Mcnair will call them if needed. I explained to Mr. Solis that if he is discharged with control of the atrial fibrillation, he should go back to the regular regimen that we had him on at home which was basically inhaled bronchodilators at this point. I will see him back in the office in two weeks and he will call if problems arise prior to that. R. MD JUAN J Adrian/ /4:35 PM /8:44 PM
[2017-05-20] MEDS: LEVOFLOXACIN 750 MG PREMIX INJ 150 ML IV SCH (22:09)
[2017-05-20] MEDS: AZITHROMYCIN INJ 500 MG in SODIUM CHLOR 0.9% 250 ML INJ 250 ML IV SCH (22:10)
[2017-05-20] MEDS: ENOXAPARIN SODIUM 30 MG/0.3 ML SYRINGE SQ SCH (22:10)
[2017-05-21] VITALS (11 sets, daily range): BP systolic 129–171; BP diastolic 60–80; PULSE 79–93; RESP 18–20; TEMP 97.3–97.8; O2SAT 91–99
--- NOTE | 2017-05-21 00:28 | EKG ---
Date Performed: 05/20/2017 Time Performed: 04:49:36 PTAGE: 76 years EKG: Sinus tachycardia with PAC(s) Poor R wave progression Possible age undetermined lateral mary ellen cardial infarction PREVIOUS TRACING : 05/19/2017 21.58 Compared to prior tracing no significant change DOCTOR: Garcia Kiser Interpretating Date/Time 05/21/2017 00:26:10
--- NOTE | 2017-05-21 00:52 | EKG ---
Date Performed: 05/19/2017 Time Performed: 21:58:36 PTAGE: 76 years EKG: Sinus rhythm WITH FREQUENT SUPRAVENTRICULAR PREMATURE COMPLEXES POSSIBLE RIGHT VENTRICULAR HYPERTROPHY POSSIBLE A NTERIOR MYOCARDIAL INFARCTION ABNORMAL ECG PREVIOUS TRACING : 05/19/2017 15.55 Compared to the previous tracing, extensive changes since p revious EKG earlier in the day, possible right sided EKG with limb lead reversal DOCTOR: Garcia Kiser Interpretating Date/Time 05/21/2017 00:50:27
--- NOTE | 2017-05-21 01:14 | EKG ---
Date Performed: 05/19/2017 Time Performed: 15:55:49 PTAGE: 76 years EKG: SINUS TACHYCARDIA WITH PACs ABNORMAL RHYTHM ECG PREVIOUS TRACING : 01/25/2005 05.48 Unable to compare as previous has no tracing DOCTOR: Garcia Kiser Interpretating Date/Time 05/21/2017 01:13:11
[2017-05-21] MEDS: RESP: ALBUTEROL 2.5 MG/IPRATROPIUM 0.5 MG NEB (SCH) INH ×4 (03:25→22:05)
[2017-05-21] MEDS: DILTIAZEM-CD 240 MG CAP ER PO SCH ×2 (06:35→09:00)
[2017-05-21 08:08] LABS: AUTOMATED NEUTROPHIL # 18.3 TH/MM3 (1.8-7.7); HEMATOCRIT 42.4 % (39.0-51.0); HEMO FLAGS DIFF FINAL; LYMPH % 1.3 % (9.0-44.0); LYMPHOCYTE # 0.3 TH/MM3 (1.0-4.8); MEAN CELL VOLUME 85.4 FL (80.0-100.0); MEAN CORPUSCULAR HEMOGLOBIN 27.6 PG (27.0-34.0); MEAN CORPUSCULAR HGB CONC 32.3 % (32.0-36.0); MONO % 3.4 % (0.0-8.0); NEUT % 95.3 % (16.0-70.0); PLATELET COUNT 224 TH/MM3 (150-450); RED BLOOD COUNT 4.96 MIL/MM3 (4.50-5.90); RED CELL DISTRIBUTION WIDTH 15.7 % (11.6-17.2); WHITE BLOOD COUNT 19.2 TH/MM3 (4.0-11.0)
[2017-05-21 08:44] LABS: BICARBONATE 24.2 MEQ/L (21.0-32.0); MAGNESIUM 2.1 MG/DL (1.5-2.5); POTASSIUM 3.9 MEQ/L (3.5-5.1)
[2017-05-21] MEDS: methylPREDNISolone SOD SUCC 40 MG/1 ML VIAL IV SCH (10:25)
--- NOTE | 2017-05-21 17:27 | HHI.PR ---
Subjective Remarks Pt quite anxious today. c/o increased SOB with exertion Objective Vitals Vital Signs Date Time Temp Pulse Resp B/P (MAP) Pulse Ox O2 Delivery O2 Flow Rate FiO2 05/21/17 16:00 97.8 79 19 141/65 (90) 91 05/21/17 12:00 97.4 85 19 131/60 (83) 94 05/21/17 09:12 93 05/21/17 08:00 86 05/21/17 08:00 97.6 82 19 149/70 (96) 99 05/21/17 08:00 96 Room Air 05/21/17 04:00 97.5 88 20 146/67 (93) 93 05/21/17 03:26 93 05/21/17 00:15 97.3 82 20 129/65 (86) 93 05/21/17 00:00 Room Air 05/20/17 20:00 Room Air 05/20/17 20:00 97.8 81 20 147/67 (93) 94 05/20/17 19:57 81 Result Diagram: 05/21/17 0706 05/21/17 0706 Imaging Last [address] Angiography 05/19/17 1630 Signed Impressions: Service Date/Time: April 17:28 - CONCLUSION: 1. No evidence of pulmonary embolism. 2. Situs inversus totalis. 3. Bronchiectasis greatest in the lung bases with chronic scarring and reticulonodular opacities. 4. Bilateral calcified pleural plaques. 5. Mediastinal and hilar adenopathy. This may be reactive. Nino Hurt MD Chest X-Ray 05/19/17 1552 Signed Impressions: Service Date/Time: April 16:41 - CONCLUSION: 1. Hyperinflation underlying emphysema. 2. Coarse infiltrate in both lung bases with bronchiectasis. Nino Hurt MD Objective Remarks General: NAD, AAOx3 Chest: clear Cardiac: irregular Abd: +BS, soft ND/NT Ext: No edema A/P Problem List: (1) Pneumonia ICD Codes: J18.9 - Pneumonia, unspecified organism Status: Acute Plan: - comgmt with Pulm Med - Pt is a 76 y/o male with long history of bronchiectasis and follows with Dr. Lloyd Hinds, who presented to the ED for evaluation of shortness of breath. - Patient reports that he has been feeling short of breath for several years but worse the past few months. He does NOT typically require supplemental oxygen as an outpatient. - Pt reportedly had an outpt CT study of his chest which showed "infection". Patient had reportedly been on multiple antibiotics and was on ciprofloxacin prior to admission. - Pts WBC count at admission was 15.8 - CTA (05/19/17) --> No evidence of pulmonary embolism. Situs inversus totalis. Bronchiectasis greatest in the lung bases with chronic scarring and reticulonodular opacities. Bilateral calcified pleural plaques. Mediastinal and hilar adenopathy which may be reactive. - Pt was given Levaquin and Aztreonam in the ED - He was continued on Levaquin and Azithromycin IV following admission. - Cont. Duoneb treatments - change solumedrol to prednisone. - Sputum culture --> pending - Blood cultures are pending - It is noted that patient has underlying bronchiectasis with situs inversus and multiple pneumonias. 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 - Supportive care - Pt may require prn oxygen, particular for use with ambulation - will obtain walk test - DVT prophylaxis with SCDs - anticipate discharge to home in 1-2 days (2) Bronchiectasis ICD Codes: J47.9 - Bronchiectasis, uncomplicated Plan: - As noted above. (3) Afib ICD Codes: I48.91 - Unspecified atrial fibrillation Status: Acute Plan: - Pt does NOT have previous hx of A. fib. - Pt HR was in the 120's at admission. - This appears to be relatively new onset and may be associated with underlying chronic lung condition. - 2D echo done --> results pending - cardizem changed to cardizem CD 240mg daily - start eliquis 5mg BID - f/u with [facility] outpt - await echo results. (4) Anxiety ICD Codes: F41.9 - Anxiety disorder, unspecified Plan: - start lexapro - xanax prn (5) Steroid-induced hyperglycemia ICD Codes: R73.9 - Hyperglycemia, unspecified Plan: - pt states that he has prediabetes - blood sugar running high - obtain HgA1C - novolog SSI Problem Qualifiers (1) Pneumonia: Qualified Codes: J18.9 - Pneumonia, unspecified organism (2) Afib: Qualified Codes: I48.91 - Unspecified atrial fibrillation Daniel Mcnair DO May 21, 2017 17:27
[2017-05-21] MEDS ORDERED: MAGNESIUM HYDROXIDE SUSP 30 ML CUP PO PRN (17:30)
[2017-05-21] MEDS: SODIUM CHLORIDE 0.9% FLUSH 10 ML FLUSH IV FLUSH SCH ×2 (17:55→20:53)
[2017-05-21] MEDS: ALPRAZolam 0.25 MG TAB PO PRN (17:55)
--- NOTE | 2017-05-21 18:39 | ECHRPT ---
Indication: ATRIAL FIBRILLATION CONCLUSIONS This patient has Dextracardia.Normal left ventricular size. Wall thickness is normal. The left ventricular systolic function is normal with an estimated ejection fraction in the range of 55-60%. Doppler parameters are consistent with impaired left ventricular relaxtion (grade 1 diastolic dysfun ction). The left atrial size is hedf-ae-[id number] dilated. The right atrial size is mildly dilated. The interatrial septum not well visualized. Trace mitral valve regurgitation. Aortic valve sclerosis is present. No aortic valve regurgitation. No aortic valve stenosis. There is mild tricuspid valve regurgitation. There is estimated moderate pulmonary hypertension present (range 50-60 mmHg). The pulmonary valve is not well visualized. The inferior vena cava was not well visualized. BP: 134 / 85 HR: 99 Rhythm: Atrial fibrillation, Sinus MEASUREMENTS (Male / Female) Normal Values Technical Quality:Poor, Technically difficult stud y 2D ECHO LVOT Diameter 2.2 cm Aortic Root Diameter 2.6 cm DOPPLER AV Peak Velocity 165.0 cm/s AV Peak Gradient 10.9 mmHg AV Mean Gradient 6.0 mmHg AV Velocity Time Integral 29.8 cm LVOT Peak Velocity 132.0 cm/s LVOT Peak Gradient 7.0 mmHg LVOT Velocity Time Integral 20.3 cm LVOT Cardiac Index 4078.1 cm/minm AV Area Cont Eq vti 2.6 cm AV Area Cont Eq pk 3.0 cm Mitral E Point Velocity 79.5 cm/s Mitral A Point Velocity 105.0 cm/s Mitral E to A Ratio 0.8 LV E' Lateral Velocity 8.8 cm/s Mitral E to LV E' Lateral Ratio 9.1 LV E' Septal Velocity 5.4 cm/s Mitral E to LV E' Septal Ratio 14.8 TR Peak Velocity 315.0 cm/s TR Peak Gradient 39.7 mmHg FINDINGS LEFT VENTRICLE Normal left ventricular size. Wall thickness is normal. The left ventricular systolic function is normal with an estimated ejection fraction in the range of 55-60%. Doppler parameters are consistent with impaired left ventricular relaxtion (grade 1 diastolic dysfun ction). RIGHT VENTRICLE Normal right ventricular size and systolic function. LEFT ATRIUM The left atrial size is hiqt-wl-exbnrlumid dilated. RIGHT ATRIUM The right atrial size is mildly dilated. ATRIAL SEPTUM The interatrial septum not well visualized. AORTA The aortic root and proximal ascending aorta are normal in size on limited imaging. MITRAL VALVE Structurally normal mitral valve. Trace mitral valve regurgitation. AORTIC VALVE Aortic valve sclerosis is present. No aortic valve regurgitation. No aortic valve stenosis. TRICUSPID VALVE Structurally normal tricuspid valve. There is mild tricuspid valve regurgitation. There is estimated moderate pulmonary hypertension present (range 50-60 mmHg). PULMONARY VALVE The pulmonary valve is not well visualized. VESSELS The inferior vena cava was not well visualized. PERICARDIUM No pericardial effusion. Han Arreaga MD, FACC, [facility] [place] (Electronically Signed) Final Date:21 May 2017 18:38
[2017-05-21] MEDS: DOCUSATE SODIUM 100 MG CAP PO SCH (20:52)
[2017-05-21] MEDS: LEVOFLOXACIN 750 MG PREMIX INJ 150 ML IV SCH (20:53)
[2017-05-21] MEDS: APIXABAN 5 MG TABLET PO SCH (20:53)
[2017-05-21] MEDS: predniSONE 20 MG TAB PO SCH (20:53)
[2017-05-21] MEDS: AZITHROMYCIN INJ 500 MG in SODIUM CHLOR 0.9% 250 ML INJ 250 ML IV SCH (20:53)
[2017-05-21] MEDS: INSULIN ASPART SUPPLEMENTAL SCALE SQ SCH (21:05)
[2017-05-22] VITALS (7 sets, daily range): BP systolic 132–164; BP diastolic 66–86; PULSE 85–104; RESP 18–20; TEMP 97.4–97.8; O2SAT 93–97
[2017-05-22] MEDS: RESP: ALBUTEROL 2.5 MG/IPRATROPIUM 0.5 MG NEB (SCH) INH (02:39)
[2017-05-22] MEDS: INSULIN ASPART SUPPLEMENTAL SCALE SQ SCH ×2 (06:22→11:43)
[2017-05-22] MEDS: DOCUSATE SODIUM 100 MG CAP PO SCH (07:58)
[2017-05-22] MEDS: DILTIAZEM-CD 240 MG CAP ER PO SCH (07:58)
[2017-05-22] MEDS: predniSONE 20 MG TAB PO SCH (07:59)
[2017-05-22] MEDS: APIXABAN 5 MG TABLET PO SCH (07:59)
[2017-05-22] MEDS: SODIUM CHLORIDE 0.9% FLUSH 10 ML FLUSH IV FLUSH SCH (08:04)
[2017-05-22] MEDS ORDERED: ESCITALOPRAM OXALATE 10 MG TAB PO SCH (09:00)
[2017-05-22] MEDS: ALPRAZolam 0.25 MG TAB PO PRN (11:39)
[2017-05-22 12:47] LABS: HEMOGLOBIN A1a 1.7 %; HEMOGLOBIN A1b 1.9 %; HEMOGLOBIN Ao 83.6 %; HEMOGLOBIN LA1C 1.9 %; HEMOGLOBIN P3 4.2 %
[2017-05-22] MEDS ORDERED: OXYGENDME NAS.CANULA (14:41)
--- NOTE | 2017-05-22 14:43 | HHI.FF ---
Face to Face Verification Diagnosis: (1) Bronchiectasis (2) Anxiety (3) Afib Physical Therapy Order: Evaluate and Treat, Improve ambulation, Strength and gait training Home Health Nursing Order: Medical education Signs/symptoms of disease process Oxygen administration education Medication education-adverse effect Nursing assessment with vital signs I have seen patient Rush Solis on 05/22/17. My clinical findings support the need for the requested home health care services because: Ltd mobility - disease progression Patient has SOB Deconditioned w/ increased weakness Med compliance is questionable Limited ability to care for self Need for psychosocial assistance I certify that my clinical findings support that this patient is homebound because: Hx COPD- exertion dyspnea/weakness Unsafe to leave home unassisted Need for psychosocial assistance Unable to use public transportation Daniel Mcnair DO May 22, 2017 14:43
[2017-05-22] MEDS ORDERED: PRED20 PO (14:53)
[2017-05-22] MEDS ORDERED: APIX5TAB PO (14:53)
[2017-05-22] MEDS ORDERED: ESCI10TA PO (14:53)
[2017-05-22] MEDS ORDERED: CARD240C6 PO (14:53)
[2017-05-22] MEDS ORDERED: ALPR.25 PO (14:53)
[2017-05-22] MEDS ORDERED: DOCU1CAP39 PO (14:53)
[2017-05-22] MEDS ORDERED: LEVA500T20 PO (14:53)
--- NOTE | 2017-05-22 15:06 | HHI.DS ---
Discharge Summary Admission Date May 19, 2017 at 18:35 Discharge Date: May 22, 2017 Admitting Diagnosis Pneumonia, bronchietasis, new onset afib (1) Pneumonia Diagnosis: Principal ICD Codes: J18.9 - Pneumonia, unspecified organism Status: Acute (2) Bronchiectasis Diagnosis: Principal ICD Codes: J47.9 - Bronchiectasis, uncomplicated (3) Afib Diagnosis: Principal ICD Codes: I48.91 - Unspecified atrial fibrillation Status: Acute (4) Anxiety Diagnosis: Principal ICD Codes: F41.9 - Anxiety disorder, unspecified (5) Steroid-induced hyperglycemia Diagnosis: Principal ICD Codes: R73.9 - Hyperglycemia, unspecified Consultants Dr. Osmar Hinds, Pulmonary Medicine Brief History Patient is 76-year-old male with long history of bronchiectasis, presents to emergency room for evaluation of shortness of breath. Patient reports that he has been feeling short of breath for several years but worse the past few months. He does not require supplemental oxygen as an outpatient. Reports that he has been seeing Dr. Lloyd Hinds for years for his bronchiectasis in the office and reports that he has had a workup including a CT study of his chest which showed "infection". Patient reports that he has been on multiple antibiotics and is currently taking ciprofloxacin. He takes doxycycline daily for rosacea and reportedly was on tobramycin recently. Patient reports that he' s had a productive cough with thick white sputum for the past few months. Previously the phlegm was a dark yellow color. He denies hemoptysis or foreign travel. He is originally from [place]. Has not been in the [facility] or [facility] recently. Denies fevers. Patient was seen in the office by Dr. Hinds today, was sent to the ER as he has progressing shortness of breath. Patient reports dyspnea on exertion as well as at rest. Denies history of hypertension, hyperlipidemia, he is a non smoker. Reports that Dr. Hinds requested a cardiac/pulmonary workup for patient as ALEXANDER has been ongoing and progressing over the past few months. Denies chest pain. Typically is quite active but has been limited by shortness of breath of late. He has noted that her heart seems to race at times especially when he is anxious. Reports that he has never had a bronchoscopy. CBC/BMP: 05/21/17 0706 05/21/17 0706 Significant Findings Laboratory Tests Test 05/19/17 16:00 05/19/17 23:05 05/20/17 06:44 05/21/17 07:06 White Blood Count 15.8 TH/MM3 (4.0-11.0) 12.8 TH/MM3 (4.0-11.0) 19.2 TH/MM3 (4.0-11.0) Neutrophils (%) (Auto) 83.8 % (16.0-70.0) 96.9 % (16.0-70.0) 95.3 % (16.0-70.0) Lymphocytes (%) (Auto) 4.5 % (9.0-44.0) 1.9 % (9.0-44.0) 1.3 % (9.0-44.0) Monocytes (%) (Auto) 9.4 % (0.0-8.0) Neutrophils # (Auto) 13.2 TH/MM3 (1.8-7.7) 12.4 TH/MM3 (1.8-7.7) 18.3 TH/MM3 (1.8-7.7) Lymphocytes # (Auto) 0.7 TH/MM3 (1.0-4.8) 0.2 TH/MM3 (1.0-4.8) 0.3 TH/MM3 (1.0-4.8) Monocytes # (Auto) 1.5 TH/MM3 (0-0.9) Estimat Glomerular Filtration Rate 75 ML/MIN (>89) 72 ML/MIN (>89) Troponin I LESS THAN 0.02 NG/ML LESS THAN 0.02 NG/ML LESS THAN 0.02 NG/ML Random Glucose 130 MG/DL (74-106) 186 MG/DL (74-106) Calcium Level 8.4 MG/DL (8.5-10.1) Blood Urea Nitrogen 23 MG/DL (7-18) Hemoglobin A1c 6.3 % (4.3-6.0) Imaging Last Impressions CT Angiography 05/19/17 1630 Signed Impressions: Service Date/Time: April 17:28 - CONCLUSION: 1. No evidence of pulmonary embolism. 2. Situs inversus totalis. 3. Bronchiectasis greatest in the lung bases with chronic scarring and reticulonodular opacities. 4. Bilateral calcified pleural plaques. 5. Mediastinal and hilar adenopathy. This may be reactive. Nino Hurt MD Chest X-Ray 05/19/17 1555 Signed Impressions: Service Date/Time: April 16:41 - CONCLUSION: 1. Hyperinflation underlying emphysema. 2. Coarse infiltrate in both lung bases with bronchiectasis. Nino Hurt MD PE at Discharge General: NAD, AAOx3 Chest: clear Cardiac: irregular Abd: +BS, soft ND/NT Ext: No edema Hospital Course (1) Pneumonia ICD Codes: J18.9 - Pneumonia, unspecified organism Status: Acute Plan: - comgmt with Pulm Med - Pt is a 76 y/o male with long history of bronchiectasis and follows with Dr. Lloyd Hinds, who presented to the ED for evaluation of shortness of breath. - Patient reports that he has been feeling short of breath for several years but worse the past few months. He does NOT typically require supplemental oxygen as an outpatient. - Pt reportedly had an outpt CT study of his chest which showed "infection". Patient had reportedly been on multiple antibiotics and was on ciprofloxacin prior to admission. - Pts WBC count at admission was 15.8 - CTA (05/19/17) --> No evidence of pulmonary embolism. Situs inversus totalis. Bronchiectasis greatest in the lung bases with chronic scarring and reticulonodular opacities. Bilateral calcified pleural plaques. Mediastinal and hilar adenopathy which may be reactive. - Pt was given Levaquin and Aztreonam in the ED - He was continued on Levaquin and Azithromycin IV following admission. - will complete course of antibiotics with levaquin for additional 3 days upon discharge. - pt has chronic bronchiectasis - NOT entirely clear that pt has worsening or infection at this time - I believe that pt's SOB is multifactorial - It is noted that patient has underlying bronchiectasis with situs inversus and past, multiple pneumonias. 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 - due to pt's bronchiectasis, but also d/t Afib which was likely going in and out of RVR at home - hopefully pt will be less SOB with his Afib now rate controlled - additionally pt now appears to be oxygen dependent especially with ambulation - I will arrange home oxygen - pt also suffers from anxiety associated with his bronchiectasis and chronic SOB - I will start pt on lexapro at 10mg and prn xanax. F/u with his PCP, Dr. Tejada - Cont. Duoneb treatments at home - change solumedrol to prednisone. Pt placed on a prednisone taper over 10 days - Sputum culture --> pt was not able to produce sample - Blood cultures --> NGTD - discharge to home with C, home PT, and home oxygen - f/u with Dr. Valdo Tejada, PCP, in 1 week - f/u with Pulmonary Dr. Osmar Hinds in 2 weeks - f/u with [facility] Cardiology, Dr. Osmar De Luna, in 3 weeks (2) Bronchiectasis ICD Codes: J47.9 - Bronchiectasis, uncomplicated Plan: - As noted above. (3) Afib ICD Codes: I48.91 - Unspecified atrial fibrillation Status: Acute Plan: - Pt does NOT have previous hx of A. fib. - Pt HR was in the 120's at admission. - This appears to be relatively new onset and may be associated with underlying chronic lung condition. - 2D echo (05/21/17) --> EF 55-60%, grade 1 diastolic dysfunction - cardizem CD 240mg daily - eliquis 5mg BID, review antiplatelet therapy at f/u with Cardiology (4) Anxiety ICD Codes: F41.9 - Anxiety disorder, unspecified Plan: - start lexapro - xanax prn (5) Steroid-induced hyperglycemia ICD Codes: R73.9 - Hyperglycemia, unspecified Plan: - pt states that he has prediabetes - blood sugar running high d/t steroid hyperglycemia - HgA1C 6.2 - NO OHA at this time - pt needs to observe 2,000 calorie ADA diet - f/u with PCP Pt Condition on Discharge: Stable Discharge Disposition: Disch w/ Home Health Serv Discharge Instructions DIET: Follow Instructions for: Heart Healthy Diet, Diabetic Diet Activities you can perform: Regular-No Restrictions Activities to Avoid: Driving for 24 hrs, Strenuous Activity Follow up Referrals: Cardiology - [address] Osmar De Luna PCP Follow-up - [address] Valdo Tejada Pulmonology - 2 Weeks with Rianna Hinds MD New Medications: Levofloxacin (Levaquin) 500 Mg Tablet 500 MG PO DAILY for Infection for 3 Days, #3 TAB 0 Refills Oxygen (O2) (Oxygen (O2)) Device LITER VEE.CANULA CONTINUOUS for Prevent Hypoxemia, #2 Oxygen Concentrator Portable Gaseous 2 L/min via Nasal Canula Continuous For 99 months Alprazolam (Xanax) 0.25 Mg Tab 0.25 MG PO Q6H PRN for anxiety, #20 TAB 0 Refills Apixaban (Eliquis) 5 Mg Tab 5 MG PO BID for afib, #60 TAB 0 Refills Diltiazem CD 24 HR (Cardizem CD 24 HR) 240 Mg Caper 240 MG PO DAILY for afib, #30 CAP 0 Refills Docusate Sodium (Dok) 100 Mg Cap 100 MG PO BID for constipation, #60 CAP 0 Refills Escitalopram (Escitalopram) 10 Mg Tab 10 MG PO DAILY for anxiety, #30 TAB 0 Refills Prednisone (Prednisone) 20 Mg Tab 20 MG PO BID for bronchiectasis, #10 TAB 20mg daily x 5days 10mg daily x 5days then stop Continued Medications: Albuterol Neb (Albuterol Neb) 1.25 Mg/3 Ml Neb 1.25 MG NEB Q4HR NEB PRN for SHORTNESS OF BREATH, NEBULE 0 Refills Ipratropium Neb (Ipratropium Neb) 0.5 Mg/2.5 Ml Amp 0.5 MG NEB Q12HR NEB for Breathing Treatment, NEBULE 0 Refills Discontinued Medications: Ciprofloxacin (Cipro) 500 Mg Tab 500 MG PO BID for Infection, TAB 0 Refills Daniel Mcnair DO May 22, 2017 15:06
[2017-05-22] MEDS ORDERED: LEVOFLOXACIN 500 MG TAB PO ONE (18:00)
[2017-05-22] MEDS ORDERED: APIXABAN 5 MG TABLET PO ONE (18:00)
[2017-05-22] MEDS ORDERED: predniSONE 20 MG TAB PO ONE (18:00)
[2017-05-23] MEDS ORDERED: APIXABAN 5 MG TABLET PO SCH (09:00)
[2017-05-23] MEDS ORDERED: predniSONE 20 MG TAB PO SCH (09:00)
== END 2017-05-22 19:14 | disposition home health service (06) | DRG 191 ==
LOC: NEPC 15:27 → NEDA 18:35 → N04A 22:04
PROVIDERS: ADMIT Hospitalist; ATTEND Hospitalist
DX: J47.0 Bronchiectasis with acute lower respiratory infection (principal); Q89.3 Situs inversus; J18.9 Pneumonia, unspecified organism; I48.91 Unspecified atrial fibrillation; F41.9 Anxiety disorder, unspecified; R73.03 Prediabetes; T38.0X5A Adverse effect of glucocorticoids and synthetic analogues, initial encounter; L71.9 Rosacea, unspecified; H91.90 Unspecified hearing loss, unspecified ear; Z85.46 Personal history of malignant neoplasm of prostate; Z85.51 Personal history of malignant neoplasm of bladder; Z92.21 Personal history of antineoplastic chemotherapy; Z92.3 Personal history of irradiation
CPT/HCPCS: 71010; 71275; 80048; 80053; 82550; 82948; 83036; 83735; 83880; 84443; 84484; 85025; 85610; 85730; 87040; 93005; 93306; 94150; 94620; 94640; 94664; 94667; 94668; 96360; J0456; J1650; J1815; J1956; J2920; J7030; J7040; J7050; J7512; Q9967

== ENCOUNTER → 2017-11-09 | Outpatient (CLI) | payer MEDICARE ==
[~2017-11-09] MED LIST: ALBU1.25 NEB; ALPR.25 PO; APIX5TAB PO; CARD240C6 PO; DOCU1CAP39 PO; ESCI10TA PO; IPRA0.02 NEB; LEVA500T33 PO; OXYGENDME NAS.CANULA; PRED20 PO
--- NOTE | 2017-11-11 08:50 | RSPPFT ---
DATE OF PROCEDURE: 11/09/17 COMMENTS: VOLUMES DYNAMIC: FVC and FEV1 moderately reduced. STATIC: FRC and RV moderately increased; TLC normal. FLOWS: FEV1% moderately reduced; FEF 25-75 severely reduced. DIFFUSION: Moderately reduced. FLOW VOLUME LOOP: Pattern of variable intrathoracic airways obstruction. IMPRESSION: Moderately severe obstructive ventilatory defect with reduction in diffusion and significant hyperinflation consistent with emphysema. No significant improvement post-bronchodilator.
== END ==
LOC: PHRSP 08:25
PROVIDERS: ATTEND Internal Medicine
DX: J44.9 Chronic obstructive pulmonary disease, unspecified (principal)
CPT/HCPCS: 94060; 94618; 94726; 94729